=== PATIENT | female | born 1945 | race Caucasian/White ===

== ENCOUNTER → 2024-09-08 | Outpatient (CLI) | payer MEDICARE, MEDICAID, SELFPAY ==
--- NOTE | 2024-09-08 08:25 | XR_ITS ---
Examination: PA lateral chest 2 views TECHNIQUE: Upright PA lateral chest 2 views Exam date and time: September 08, 2024 0903 hours Comparison 04/08/2000 INDICATIONS: Coughing one month FINDINGS: Early bilateral perihilar bibasilar pneumonia Normal heart size Prominent upper thoracic dextroscoliosis lower thoracic levoscoliosis IMPRESSION: Early bilateral perihilar bibasilar pneumonia
--- NOTE | 2024-09-08 09:43 | ECHO_ITS ---
Transthoracic Echo Report Ht (in): 50 Wt (lb): 132 Exam Location: Echo Lab Status: Outpatient Ingredient Mixer: Chhaya Johns Indications: Procedure Performed: BP: / HR: Rhythm: Sinus Technical Quality: Fair MEASUREMENTS (Male / Female) Normal Values 2D ECHO LV Diastolic Diameter PLAX 3.2 cm 4.2 - 5.9 / 3.9 - 5.3 cm LV Systolic Diameter PLAX 2.3 cm IVS Diastolic Thickness 0.8 cm 0.6 - 1.0 / 0.6 - 0.9 cm LVPW Diastolic Thickness 0.7 cm 0.6 - 1.0 / 0.6 - 0.9 cm LV Relative Wall Thickness 0.5 LVOT Diameter 1.5 cm LA Volume Index 21.0 cm?/m? 16 - 28 cm?/m? Ascending Aorta Diameter 2.5 cm M-MODE Aortic Root Diameter MM 2.7 cm LA Systolic Diameter MM 3.7 cm LA Ao Ratio MM 1.4 AV Cusp Separation MM 1.6 cm DOPPLER AV Peak Velocity 163.5 cm/s AV Peak Gradient 10.7 mmHg AV Mean Gradient 6.0 mmHg AV Velocity Time Integral 40.3 cm AI Peak Velocity 421.0 cm/s AI Peak Gradient 70.9 mmHg AI Pressure Half Time 484.0 ms LVOT Peak Velocity 86.5 cm/s LVOT Peak Gradient 3.0 mmHg LVOT Velocity Time Integral 18.8 cm AV Area Cont Eq vti 0.8 cm? AV Area Cont Eq pk 0.9 cm? MV Peak Velocity 147.0 cm/s MV Peak Gradient 8.6 mmHg MV Mean Velocity 90.4 cm/s MV Mean Gradient 4.0 mmHg MV Area PHT 4.9 cm? MR Peak Velocity 516.0 cm/s MR Peak Gradient 106.5 mmHg Mitral E Point Velocity 116.0 cm/s Mitral A Point Velocity 99.9 cm/s Mitral E to A Ratio 1.2 TR Peak Velocity 297.7 cm/s TR Peak Gradient 35.4 mmHg FINDINGS Left Ventricle Normal left ventricular size, wall thickness, systolic function with no obvious regional wall motion abnormalities. The ejection fraction is visually estimated at 55-60%. Right Ventricle The right ventricle is normal in size and systolic function. The estimated right ventricular systoli c pressure, 55mmHg. RAP 5. Left Atrium The left atrium is normal by two-dimensional, color flow and Doppler imaging with no structural abnormalities, no thrombus formation present. Right Atrium The right atrium is normal by two-dimensional imaging, color flow and Doppler imaging with no struct ural abnormalities, no thrombus formation present. Atrial Septum The interatrial septum appears normal with no evidence of a shunt. Aorta The aorta is normal by two-dimensional, color flow and Doppler interrogation. Mitral Valve The mitral valve is normal by two-dimensional, color flow and Doppler interrogation. There is modera te mitral valve regurgitation. Aortic Valve The aortic valve is trileaflet and normal by two-dimensional, color flow and Doppler interrogation. There is mild aortic valve regurgitation. Tricuspid Valve The tricuspid valve is normal by two-dimensional, color flow and Doppler interrogation. There is mil d tricuspid valve regurgitation. Pulmonic Valve There is mild pulmonic valve regurgitation. Vessels The pulmonary artery appears normal. The inferior vena cava pulmonary and hepatic veins appear josi l. Pericardium The pericardium is normal by two-dimensional imaging. There is no significant pericardial effusion. CONCLUSIONS Indication: Elevated BNP/CKD/COUGH Normal LV size and function. Estimated EF 55-60%. Diastolic dysfunction indeterminate. Normal RV size and function. RVSP 55mmHg. Atleast moderate PAH Mild to moderate MR. Mild AI, TR, PI. Emery Aceves (Electronically Signed) Final Date: 08 September 2024 18:32
== END | disposition home or self-care (01) ==
PROVIDERS: PCP Registered Nurse Community Health; Referring Provider Registered Nurse Community Health; Visit Provider Registered Nurse Community Health
DX: I08.3 Combined rheumatic disorders of mitral, aortic and tricuspid valves (principal); J18.9 Pneumonia, unspecified organism
CPT/HCPCS: 71046; 93306

== ENCOUNTER → 2024-10-09 | Outpatient (CLI) | payer MEDICARE, MEDICAID, SELFPAY ==
--- NOTE | 2024-10-09 09:15 | XR_ITS ---
Examination: PA lateral chest 2 views TECHNIQUE: Upright PA lateral chest 2 views Exam date and time: October 09, 2024 0931 hours INDICATIONS: Bilateral perihilar pneumonia on chest film September 08, 2024 FINDINGS: Persistent mild bilateral perihilar pneumonia Normal heart size Lower thoracic prominent levoscoliosis IMPRESSION: Persistent mild bilateral perihilar pneumonia
== END | disposition home or self-care (01) ==
LOC: CDIM 09:10
PROVIDERS: PCP Registered Nurse Community Health; Referring Provider Registered Nurse Community Health; Visit Provider Registered Nurse Community Health
DX: J18.9 Pneumonia, unspecified organism (principal)
CPT/HCPCS: 71046